=== PATIENT | male | born 1930 | race Caucasian/White ===

== ENCOUNTER 2016-12-18 14:21 | Emergency (ER) | payer MEDICARE ==
[2016-12-18 14:37] VITALS: BP 143/73
--- NOTE | 2016-12-18 15:06 | UC ---
Neck Pain HPI - HPI Summary HPI Summary: 86 yo male awoke with neck pain about 5 days ago He fell asleep while reading in bed and his neck was in a unusual position propped up by pillow Has markedly decreased ROM alexx trying to turn head to right Has pain radiating down right arm to elbow Takes gabapentin for pain states that he does not have an allergy to naproxen states that it makes him feel sick has a soft collar at home that helps - History of Current Complaint Chief Complaint: UCBackPain Stated Complaint: NECK PAIN/PINCHED NERVE Time Seen by Provider: 12/18/16 15:00 Hx Obtained From: Patient Timing: Constant Onset/Duration: Gradual Onset, Lasting Days Severity: Severe Pain Intensity: 10 Pain Scale Used: 0-10 Numeric Location: Diffuse, Radiates To: - right arm Character: Dull, Aching, Stiff, Spasmotic Aggravating Factors: Position, Movement Alleviating Factors: Nothing Associated Signs & Symptoms: Positive: Negative - Allergies/Home Medications Allergies/Adverse Reactions: Allergies Allergy/AdvReac Type Severity Reaction Status Date / Time Naproxen [From Aleve] Allergy Intermediate Shortness Verified 12/18/16 14:37 of Breath Metoprolol Allergy Unknown Verified 12/18/16 14:37 Reaction Details PMH/Surg Hx/FS Hx/Imm Hx Previously Healthy: Yes Cardiovascular History: Hypertension, Other Other Cardiovascular History: aortic valve replaement/carotid stenosis - Surgical History Surgical History: Yes Surgery Procedure, Year, and Place: RT GREAT TOE 1977, OPEN HEART 2009 WITH MECHANICAL VALVE REPLACEMENT(PATIENT HAS CARD-DR NOLASCO AT [facility] ), CAROTID ARTERY STENT(WILL BRING CARD), CATARACT BILATERAL - Family History Known Family History: Positive: Cardiac Disease, Hypertension - Social History Alcohol Use: Occasionally Substance Use Type: None Smoking Status (MU): Former Smoker When Did the Patient Quit Smoking/Using Tobacco: 1964 - Immunization History Most Recent Influenza Vaccination: n/a Most Recent Tetanus Shot: unk Most Recent Pneumonia Vaccination: n/a Review Of Systems Constitutional: Positive: Negative Skin: Positive: Negative Eyes: Positive: Negative ENT: Positive: Negative Respiratory: Positive: Negative Cardiovascular: Positive: Negative Gastrointestinal: Positive: Negative Genitourinary: Positive: Negative Musculoskeletal: Positive: Arthralgia, Myalgia Neurological: Positive: Negative Psychological: Positive: Negative All Other Systems Reviewed And Are Negative: Yes Physical Exam Triage Information Reviewed: Yes Appearance: Well-Appearing, No Pain Distress, Well-Nourished Vital Signs: Initial Vital Signs Temp 98.6 F 12/18/16 14:31 Pulse 86 12/18/16 14:31 Resp 18 12/18/16 14:31 BP 143/73 12/18/16 14:31 Pulse Ox 97 12/18/16 14:31 Vital Signs Reviewed: Yes Eyes: Positive: Conjunctiva Clear ENT: Positive: Hearing grossly normal. Negative: Nasal congestion, Nasal drainage, Trismus, Muffled/hoarse voice Neck: Positive: Tenderness @ - right>left trapezius, Other: - markedly decreased ROM Respiratory: Positive: Lungs clear, Normal breath sounds, No respiratory distress, No accessory muscle use Cardiovascular: Positive: RRR, No Murmur Musculoskeletal: Positive: ROM Intact, No Edema Neurological: Positive: Alert, Muscle Tone Normal, Other: - strenght 5/5, sensory intact , DTR's symmetrical Skin Exam: Normal Neck Pain Course/Dx - Differential Dx/Diagnosis Provider Diagnoses: severe cervical DDD. right cervical radiculopathy Discharge - Discharge Plan Condition: Stable Disposition: HOME Prescriptions: HYDROcodone/ACETAMIN 5-325 MG* [Thompson 5-325 TAB*] 1 tab PO Q6H PRN #12 tab MDD 4 PRN Reason: Pain - Severe Meloxicam [Mobic] 7.5 - 17 mg PO DAILY PRN #30 tab PRN Reason: Pain Patient Education Materials: Cervical Radiculopathy (ED), Degenerative Disc Disease (ED) Referrals: Latoya Lima MD [Primary Care Provider] - 5 Days Additional Instructions: wear your soft cervical collar narcotic will cause drowsiness don't take and drive use sparingly see your MD next week
--- NOTE | 2016-12-18 15:25 | RAD ---
INDICATION: Atraumatic neck pain COMPARISON: None TECHNIQUE: Routine five-view imaging was performed FINDINGS: Bones: There are no acute bony findings. There are advanced osteocytic changes with marked disc space narrowing, endplate sclerosis, uncinate process spurring, and facet arthropathy from C3 through C7. Craniocervical junction: The odontoid and atlantodental interval are normal. Alignment: Normal Disc spaces: As above multilevel degenerative narrowing Soft tissues: The prevertebral soft tissues are normal. IMPRESSION: ADVANCED MULTILEVEL DEGENERATIVE DISC DISEASE.
== END 2016-12-18 15:57 | disposition home or self-care (01) ==
LOC: UCCORT 14:21
DX: M50.10 Cervical disc disorder with radiculopathy, unspecified cervical region (principal); I10 Essential (primary) hypertension; Z95.2 Presence of prosthetic heart valve; Z88.6 Allergy status to analgesic agent; Z87.891 Personal history of nicotine dependence
CPT/HCPCS: 72050; 99212; G0463

== ENCOUNTER 2017-09-23 09:20 | Emergency (ER) | payer MEDICARE ==
[2017-09-23 09:55] VITALS: BP 135/64
[2017-09-23] MEDS ORDERED: Lidocaine 2% PF * 5 ML VIAL INJ ONE (10:25)
[2017-09-23] MEDS ORDERED: Triamcinolone Acetonide* 40 MG/ML 1 ML VIAL IM ONE (10:26)
--- NOTE | 2017-09-23 10:34 | UC ---
Shoulder Pain HPI - HPI Summary HPI Summary: Pt presents with c/o sudden onset of right shoulder pain that began Thursday, after mowing his lawn for 2 hours then pain worsened with mowing lawn one day later for 2 hours. Denies injury or trauma to the area. No previous history of injury or surgical procedure. - History of Current Complaint Chief Complaint: UCGeneralIllness Stated Complaint: RIGHT SHOULDER COMP Time Seen by Provider: 09/23/17 10:07 Hx Obtained From: Patient Onset/Duration: Sudden Onset, Lasting Days, Still Present, Worse Since - osnet Timing: Constant Severity Initially: Mild Severity Currently: Severe Pain Intensity: 8 Character: Dull, Aching Aggravating Factor(s): Movement, Internal Rotation Alleviating Factor(s): Rest Associated Signs And Symptoms: Positive: Weakness Related History: Dominant Hand Right - Risk Factors Non-Orthopedic Risk Factor: Negative - Allergies/Home Medications Allergies/Adverse Reactions: Allergies Allergy/AdvReac Type Severity Reaction Status Date / Time metoprolol Allergy Tinnitus Verified 09/23/17 09:44 naproxen [From Aleve] Allergy Shortness Verified 09/23/17 09:44 of Breath Home Medications: Home Medications Gabapentin CAP(*) [Neurontin 300 CAP(*)] 300 mg BEDTIME 09/23/17 [History Confirmed 09/23/17] amLODIPine TAB* [Norvasc 5 mg TAB*] 1 tab DAILY 09/23/17 [History Confirmed 02/02] PMH/Surg Hx/FS Hx/Imm Hx Previously Healthy: Yes - Surgical History Surgical History: Yes Surgery Procedure, Year, and Place: RT GREAT TOE 1977, 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 ), CAROTID ARTERY STENT(WILL BRING CARD), CATARACT BILATERAL - Family History Known Family History: Positive: Cardiac Disease, Hypertension - Social History Occupation: Retired Lives: With Family Alcohol Use: Rare Substance Use Type: None Smoking Status (MU): Former Smoker Have You Smoked in the Last Year: No When Did the Patient Quit Smoking/Using Tobacco: 1964 - Immunization History Most Recent Influenza Vaccination: n/a Most Recent Tetanus Shot: unk Most Recent Pneumonia Vaccination: n/a Review of Systems Constitutional: Negative Skin: Negative Eyes: Negative ENT: Negative Respiratory: Negative Cardiovascular: Negative Gastrointestinal: Negative Genitourinary: Negative Motor: Decreased ROM - right shoulder, Weakness - right upper arm Neurovascular: Negative Musculoskeletal: Arthralgia, Decreased ROM - right shoulder, Myalgia Neurological: Negative Psychological: Negative Is Patient Immunocompromised?: No All Other Systems Reviewed And Are Negative: Yes Physical Exam Triage Information Reviewed: Yes Appearance: Well-Appearing Vital Signs: Initial Vital Signs Temp 98 F 09/23/17 09:47 Pulse 50 09/23/17 09:47 Resp 16 09/23/17 09:47 BP 135/64 09/23/17 09:47 Pulse Ox 100 09/23/17 09:47 Vital Signs Reviewed: Yes Eye Exam: Normal ENT: Positive: Hearing grossly normal, Other - has hearing aid Respiratory Exam: Normal Respiratory: Positive: No respiratory distress Cardiovascular Exam: Normal Cardiovascular: Positive: Bradycardia Musculoskeletal: Positive: Strength Limited @ - right upper extremity, shoulder , ROM Limited @ - right shoulder upper extremity Neurological Exam: Normal Psychological Exam: Normal Skin Exam: Normal Procedures - Procedure Summary Procedure Summary: kenalog injection to right shoulder. See Dr. Ward progress note. Shoulder Course/Dx - Course Assessment/Plan: Pt agreed to Kenalog injection. See DR. Ward Progress note - Differential Dx/Diagnosis Differential Diagnosis/HQI/PQRI: Bursitis, Rotator Cuff Injury Provider Diagnoses: Rotator Cuff injury Discharge - Sign-Out/Discharge Documenting (check all that apply): Discharge/Admit/Transfer - Discharge Plan Condition: Stable Disposition: HOME Prescriptions: Acetaminophen TAB* [Tylenol TAB*] 650 mg PO Q6H PRN #40 tab PRN Reason: Pain Patient Education Materials: Rotator Cuff Injury (ED) Referrals: Yrn Gan MD [Medical Doctor] - As Soon As Possible Latoya Lima MD [Primary Care Provider] - If Needed - Billing Disposition and Condition Condition: STABLE Disposition: HOME
--- NOTE | 2017-09-23 10:54 | UC ---
- Progress Note Progress Note: Right shoulder pain. Atraumatic from using a riding mower where he did a lot of steering. It slowly got worse. He was verbally consented for injection and risks reviewed such as pain, bleeding, infection. He agreed. Time out and usual sterile technique. betadine prep x 3. 40mg kenalog, 3ml lidocaine. 20 guage needle. One attempt. posterior approach. NO complications. Discharge - Sign-Out/Discharge Documenting (check all that apply): Discharge/Admit/Transfer - Discharge Plan Condition: Good Disposition: HOME Referrals: Latoya Lima MD [Primary Care Provider] - - Billing Disposition and Condition Condition: GOOD Disposition: HOME
== END 2017-09-23 11:03 | disposition home or self-care (01) ==
LOC: UCCORT 09:20
DX: S46.001A Unspecified injury of muscle(s) and tendon(s) of the rotator cuff of right shoulder, initial encounter (principal); X50.9XXA Other and unspecified overexertion or strenuous movements or postures, initial encounter; Y93.I9 Activity, other involving external motion; Y92.007 Garden or yard of unspecified non-institutional (private) residence as the place of occurrence of the external cause; Z88.6 Allergy status to analgesic agent; Z88.8 Allergy status to other drugs, medicaments and biological substances; Z87.891 Personal history of nicotine dependence
CPT/HCPCS: 20610; 99212; G0463; J3301

== ENCOUNTER 2017-10-24 08:00 | Emergency (ER) | payer MEDICARE ==
[2017-10-24 08:25] VITALS: BP 151/69
--- NOTE | 2017-10-24 08:41 | UC ---
Respiratory Complaint HPI - HPI Summary HPI Summary: Patient presents with 2-3 weeks of intermittent coughing paroxysms. Patient states occasionally he has some white sputum production. Patient denies shortness of breath or chest pain. Patient has abdominal pain. Patient denies nausea vomiting. Patient states he does have some head and nasal congestion as well as postnasal drip. Patient unsure if this is causing him to cough. Patient states his last paroxysm was yesterday. No fevers or chills. No rash. Patient has taken multiple nexh-qim-[id number] remedies with little relief. Patient has not taken any allergy medication. No sick contacts. Patient denies any ear pain or fullness. He states his ankles and a little swollen but "nothing" no other complaints. No history of CHF Medications medications reviewed this visit - History of Current Complaint Chief Complaint: UCRespiratory Stated Complaint: RESPIRATORY Time Seen by Provider: 10/24/17 08:21 Hx Obtained From: Patient Onset/Duration: Lasting Weeks Timing: Intermittent Episodes Severity Currently: None Pain Intensity: 0 Character: Cough: Productive Associated Signs And Symptoms: Positive: Negative - Allergies/Home Medications Allergies/Adverse Reactions: Allergies Allergy/AdvReac Type Severity Reaction Status Date / Time metoprolol Allergy Tinnitus Verified 10/24/17 08:21 naproxen [From Aleve] Allergy Shortness Verified 10/24/17 08:21 of Breath Home Medications: Home Medications Allopurinol TAB* [Zyloprim 100 MG TAB*] 100 mg PO DAILY 10/24/17 [History Confirmed 10/24/17] PMH/Surg Hx/FS Hx/Imm Hx Previously Healthy: Yes Cardiovascular History: Other - valve replaced Other Cardiovascular History: valve replaced - Surgical History Surgical History: Yes Surgery Procedure, Year, and Place: RT GREAT TOE 1977, OPEN HEART 2009 WITH MECHANICAL VALVE REPLACEMENT(PATIENT HAS CARD-DR NOLASCO AT [facility]. ), CAROTID ARTERY STENT(WILL BRING CARD), CATARACT BILATERAL - Family History Known Family History: Positive: Cardiac Disease, Hypertension - Social History Occupation: Retired Lives: With Family Alcohol Use: Rare Substance Use Type: None Smoking Status (MU): Former Smoker Have You Smoked in the Last Year: No When Did the Patient Quit Smoking/Using Tobacco: 1964 - Immunization History Most Recent Influenza Vaccination: n/a Most Recent Tetanus Shot: unk Most Recent Pneumonia Vaccination: n/a Review of Systems Constitutional: Negative Skin: Negative ENT: Nasal Discharge, Sinus Congestion Respiratory: Cough All Other Systems Reviewed And Are Negative: Yes Physical Exam - Summary Physical Exam Summary: Vital Signs Reviewed: Yes A+Ox3, no distress Eyes: Conjunctiva Clear, LUTHER. EOM intact and full ENT: Hearing grossly normal TM x 2 obscurred by cerumen bilateral; turbinates inflammed and boggy. + PND clear, mmoist, uvula midline, no exudate, no erythema Neck: Positive: Supple no lymphadenopathy Respiratory: Positive: No respiratory distress, No accessory muscle use + CTA throughout no w/r/r Cardiovascular: RRR nl s1, s2 CBT <2 sec no edema abd soft + BS nt/nd no guarding, no distension Musculoskeletal Exam: OTERO x 4 without difficulty Strength Intact, ROM Intact Neurological: Positive: Alert, + sensation throughout Psychological: Positive: Normal Response To Family Skin: Positive: no rash, no ecchymosis Triage Information Reviewed: Yes Vital Signs: Initial Vital Signs Temp 98.5 F 10/24/17 08:18 Pulse 63 10/24/17 08:18 Resp 16 10/24/17 08:18 BP 151/69 10/24/17 08:18 Pulse Ox 96 10/24/17 08:18 UC Diagnostic Evaluation - Laboratory O2 Sat by Pulse Oximetry: 96 - Radiology Xray Interpretation: No Acute Changes - Attending Doctor: Sarah Fernandez ( [id number]) Radiology Interpretation Completed By: Radiologist Re-Evaluation - Re-Evaluation First Eval Re-Evaluation Time: 09:06 Change: Improved - TM x 2 clear no erythema, no fluid reviewd CXR suspect cough related to PND recommend flonase, claritin pt comfotable and in agreement with plan Respiratory Course/Dx - Course Course Of Treatment: presents with intermittent episodes of coughing with white sputum over the last to 3 weeks. Patient with head congestion postnasal drip. Patient denies any other complaints but states maybe some trace edema in his legs. On exam patient well-appearing. Patient with sinus congestion and postnasal drip. Patient lungs are clear. Patient panic membranes obscured by cerumen bilaterally. Will check a chest x-ray. Will irrigate years. Suspect cough is related to postnasal drip and not a lung process. I'll make sure there is no evidence of CHF on his chest x-ray given his history of atrial fibrillation and valve replacement. Patient comfortable with the plan. - Differential Dx/Diagnosis Provider Diagnoses: Bilateral cerumen impaction. Postnasal drip sinus congestion. Cough Discharge - Sign-Out/Discharge Documenting (check all that apply): Discharge/Admit/Transfer - Discharge Plan Condition: Stable Disposition: HOME Prescriptions: Carbamide Peroxide 6.5% OTIC* [DEBROX 6.5% Otic*] 3 drop BOTH EARS DAILY #1 bottle Fluticasone NASAL SPRAY 50MCG* [Flonase NASAL SPRAY 50MCG*] 2 spray BOTH NARES DAILY #1 btl Patient Education Materials: Cerumen Impaction (ED), Acute Cough (ED), Postnasal Drip (DC) Referrals: Latoya Lima MD [Primary Care Provider] - Additional Instructions: The doctor that evaluated you today thinks your cough is related to post nasal drip and congestion from your lungs. You chest xray does not show any concerning finding such as pneumonia or fluid on your lungs. It is recommeded you use nasal spray daily as prescribed It is recommended you use an allergy medication such as Claritin, Zyrtec, Mckenna USe was softening drops daily stay well hydrated. Drink plenty of non-alcoholic, non-caffinated beverages Contact your doctor to schedule a follow-up appointment. Contact your doctor or return with questions or concerns. If you develop shortness of breath, chest pain, lightheadedness or other concerning symptoms you should go to the emergency department for evaluation - Billing Disposition and Condition Condition: STABLE Disposition: Home
--- NOTE | 2017-10-24 09:02 | RAD ---
INDICATION: Cough x2 weeks COMPARISON: Chest x-ray dated August 24, 2014 TECHNIQUE: PA and lateral views of the chest were obtained. FINDINGS: Stable postsurgical changes include left upper chest cardiac pacemaker with one lead overlying the heart, sternotomy wires and prosthetic heart valves, all unchanged since the prior chest x-ray. The heart and mediastinum are normal in size and contour. The lungs are grossly clear. There is no evidence of large pleural effusion. Degenerative changes of the thoracic spine include loss of intervertebral disc height and anterior marginal osteophyte formation. There is no radiographic evidence of free air beneath the diaphragm IMPRESSION: No radiographic evidence of acute cardiopulmonary disease.
== END 2017-10-24 09:29 | disposition home or self-care (01) ==
LOC: UCCORT 08:00
DX: R05 Cough (principal); H61.23 Impacted cerumen, bilateral; R09.82 Postnasal drip; R09.81 Nasal congestion; Z88.6 Allergy status to analgesic agent; Z88.8 Allergy status to other drugs, medicaments and biological substances; Z87.891 Personal history of nicotine dependence
CPT/HCPCS: 71046; 99213; G0463

== ENCOUNTER 2017-11-11 08:56 | Emergency (ER) | payer MEDICARE ==
[2017-11-11 09:28] VITALS: BP 133/65
--- NOTE | 2017-11-11 10:13 | UC ---
Throat Pain/Nasal Carl HPI - HPI Summary HPI Summary: He has had sinus pressure and head congestion for weeks. He had a cough as well that has improved. No fever. There is malaise. He denies seasonal allergies. - History of Current Complaint Chief Complaint: UCGeneralIllness Stated Complaint: SKIN COMPLAINT ON FOREHEAD Time Seen by Provider: 11/11/17 09:23 Hx Obtained From: Patient Onset/Duration: Gradual Onset, Lasting Weeks, Still Present Severity: Moderate Pain Intensity: 0 Cough: Nonproductive Associated Signs & Symptoms: Positive: Sinus Discomfort. Negative: Fever, Vomiting, Rash - Allergies/Home Medications Allergies/Adverse Reactions: Allergies Allergy/AdvReac Type Severity Reaction Status Date / Time metoprolol Allergy Tinnitus Verified 11/11/17 09:22 naproxen [From Aleve] Allergy Shortness Verified 11/11/17 09:22 of Breath Home Medications: Home Medications Probenecid/Colchicine [Probenecid-Colchicine Tabs] 1 each PO DAILY PRN 11/11/17 [History Confirmed 11/11/17] PMH/Surg Hx/FS Hx/Imm Hx Previously Healthy: No - HTN. No heart disease. - Surgical History Surgical History: Yes Surgery Procedure, Year, and Place: RT GREAT TOE 1977, OPEN HEART 2009 WITH MECHANICAL VALVE REPLACEMENT(PATIENT HAS CARD-DR NOLASCO AT [facility] ), CAROTID ARTERY STENT(WILL BRING CARD), CATARACT BILATERAL - Family History Known Family History: Positive: Cardiac Disease, Hypertension - Social History Alcohol Use: None Substance Use Type: None Smoking Status (MU): Former Smoker Have You Smoked in the Last Year: No When Did the Patient Quit Smoking/Using Tobacco: 1965 - Immunization History Most Recent Influenza Vaccination: n/a Most Recent Tetanus Shot: unk Most Recent Pneumonia Vaccination: n/a Review of Systems ENT: Sinus Congestion, Sinus Pain/Tenderness Respiratory: Cough All Other Systems Reviewed And Are Negative: Yes Physical Exam Triage Information Reviewed: Yes Appearance: Well-Appearing, No Pain Distress, Well-Nourished Vital Signs: Initial Vital Signs Temp 98.0 F 11/11/17 09:14 Pulse 58 11/11/17 09:14 Resp 16 11/11/17 09:14 BP 133/65 11/11/17 09:14 Pulse Ox 98 11/11/17 09:14 Eyes: Positive: Conjunctiva Clear ENT: Positive: Normal ENT inspection, Pharynx normal, Nasal congestion, TMs normal, Sinus tenderness. Negative: Pharyngeal erythema, Nasal drainage, Tonsillar swelling, Tonsillar exudate, Trismus, Muffled voice, Uvula midline Neck: Positive: Supple, Nontender, No Lymphadenopathy Respiratory: Positive: Lungs clear, Normal breath sounds, No respiratory distress, No accessory muscle use. Negative: Respiratory distress, Decreased breath sounds, Accessory muscle use, Crackles, Rhonchi, Stridor Cardiovascular: Positive: RRR, No Murmur, Pulses Normal Abdomen Description: Positive: No Organomegaly, Soft. Negative: Distended, Guarding Musculoskeletal: Positive: Strength Intact, ROM Intact, No Edema Neurological: Positive: Alert, Muscle Tone Normal. Negative: Fatigued Psychological: Positive: Age Appropriate Behavior Skin: Positive: rashes Throat Pain/Nasal Course/Dx - Course Course Of Treatment: Two weeks or so of congestion. There is now remaining sinus pressure and pain. Cough is much better. - Differential Dx/Diagnosis Provider Diagnoses: sinusitis Discharge - Sign-Out/Discharge Documenting (check all that apply): Discharge/Admit/Transfer - Discharge Plan Condition: Good Disposition: HOME Prescriptions: Azithromyxin JIMI (NF) [Z-Jimi (Zithromax) 250 mg tabs #6] 2 tab PO .TODAY, THEN 1 DAILY #6 tab Guaifenesin/Pseudo 600/60(NF) [Mucinex D 600/60 (NF)] 1 tab PO DAILY #20 tab Patient Education Materials: Sinusitis (ED), Rhinosinusitis (ED) Referrals: Latoya Lima MD [Primary Care Provider] - If Needed - Billing Disposition and Condition Condition: GOOD Disposition: Home
== END 2017-11-11 10:15 | disposition home or self-care (01) ==
LOC: UCCORT 08:56
DX: J32.9 Chronic sinusitis, unspecified (principal); Z88.6 Allergy status to analgesic agent; Z88.8 Allergy status to other drugs, medicaments and biological substances; Z87.891 Personal history of nicotine dependence; Z95.2 Presence of prosthetic heart valve
CPT/HCPCS: 99212; G0463

== ENCOUNTER 2018-02-27 12:30 | Emergency (ER) | payer MEDICARE ==
[2018-02-27 13:46] VITALS: BP 163/79
== END 2018-02-27 14:26 | disposition left against medical advice (07) ==
LOC: UCCORT 12:30
DX: S61.211A Laceration without foreign body of left index finger without damage to nail, initial encounter (principal); X58.XXXA Exposure to other specified factors, initial encounter; Y92.9 Unspecified place or not applicable; Z53.21 Procedure and treatment not carried out due to patient leaving prior to being seen by health care provider

== ENCOUNTER 2019-07-22 09:17 | Emergency (ER) | payer MEDICARE ==
[2019-07-22 09:42] VITALS: BP 174/86
--- NOTE | 2019-07-22 10:24 | UC ---
General HPI - HPI Summary HPI Summary: 88-year-old male presents with concerns for an elevated blood pressure over the past couple of weeks. Patient states that he is scheduled for prostate surgery next week and worries that this may delay the procedure. He has been unable to schedule an appointment with his primary care provider to discuss his concerns. Patient presents with a record of blood pressures that he has been taking at home for the past week. His record shows systolic blood pressures in the 140s to 170s and diastolic pressures in the 70s and 80s with a single diastolic blood pressure reading in the 90s. States he has been compliant with his blood pressure medication although he has not taken his meds today. Denies headache, dizziness, visual disturbances, slurred or difficulty speaking, facial droop, numbness, tingling, or weakness in the arms or legs, chest pain, palpitations, or shortness of breath. - History of Current Complaint Chief Complaint: UCGeneralIllness Stated Complaint: BLOOD PRESSURE CONCERN Time Seen by Provider: 07/22/19 10:14 Hx Obtained From: Patient Pain Intensity: 0 - Allergy/Home Medications Allergies/Adverse Reactions: Allergies Allergy/AdvReac Type Severity Reaction Status Date / Time metoprolol AdvReac Tinnitus Verified 07/22/19 09:32 naproxen [From Aleve] AdvReac Shortness Verified 07/22/19 09:32 of Breath Home Medications: Home Medications Vitamin B Complex CAP* [B Complex CAP*] 1 cap PO QAM 08/23/14 [History Confirmed 07/22/19] Gabapentin CAP(*) [Neurontin 300 CAP(*)] 300 mg PO BEDTIME PRN 09/23/17 [ History Confirmed 07/22/19] Probenecid/Colchicine [Probenecid-Colchicine Tabs] 1 each PO QAM PRN 11/11/17 [ History Confirmed 07/22/19] Aspirin EC TAB* [Ecotrin EC Low Dose 81 MG*] 81 mg PO QAM 02/27/18 [History Confirmed 07/22/19] Ramipril CAP* [Altace CAP*] 10 mg PO BEDTIME 07/20/19 [History Confirmed ] PMH/Surg Hx/FS Hx/Imm Hx Cardiovascular History: Hypertension, Atrial Fibrillation, Other - Surgical History Surgical History: Yes Surgery Procedure, Year, and Place: RT GREAT TOE 1977, 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 ), CAROTID ARTERY STENT(WILL BRING CARD), CATARACT BILATERAL - Family History Known Family History: Positive: Cardiac Disease, Hypertension - Social History Occupation: Retired Lives: Alone Alcohol Use: Occasionally Substance Use Type: None Smoking Status (MU): Former Smoker Have You Smoked in the Last Year: No When Did the Patient Quit Smoking/Using Tobacco: 1965 - Immunization History Most Recent Influenza Vaccination: n/a Most Recent Tetanus Shot: 2017 Most Recent Pneumonia Vaccination: n/a Review of Systems All Other Systems Reviewed And Are Negative: Yes Constitutional: Negative: Fever, Chills Respiratory: Negative: Shortness Of Breath, Cough Cardiovascular: Negative: Palpitations, Chest Pain Gastrointestinal: Positive: Negative Genitourinary: Positive: Negative Musculoskeletal: Positive: Negative Neurological/Mental Status: Negative: Headache, Weakness, Paresthesia, Numbness Is Patient Immunocompromised?: No Physical Exam - Summary Physical Exam Summary: GENERAL APPEARANCE: Well developed, well nourished, alert and cooperative, and appears to be in no acute distress. EYES: Conjunctiva clear. No drainage. EARS: External auditory canals and tympanic membranes clear, hearing grossly intact. NOSE: No nasal discharge. THROAT: Pharynx normal. No tonsilar inflammation, swelling, exudate, or lesions. Uvula midline. NECK: Neck supple, non-tender without lymphadenopathy. CARDIAC: Normal S1 and S2. No S3, S4 or murmurs. Rhythm is regular. There is no peripheral edema, cyanosis or pallor. Extremities are warm and well perfused. Capillary refill is less than 2 seconds. Peripheral pulses intact. LUNGS: Clear to auscultation without rales, rhonchi, wheezing or diminished breath sounds. ABDOMEN: Positive bowel sounds. Soft, nondistended, nontender. No guarding or rebound. No masses or hepatosplenomegally. MUSKULOSKELETAL: ROM intact to all extremities. No joint erythema or tenderness. Normal muscular development. Normal gait. SKIN: Skin normal color, texture and turgor with no lesions or eruptions. Triage Information Reviewed: Yes Vital Signs: Initial Vital Signs Temp 97.4 F 07/22/19 09:34 Pulse 52 07/22/19 09:34 Resp 16 07/22/19 09:34 BP 174/86 07/22/19 09:34 Pulse Ox 100 07/22/19 09:34 Vital Signs Reviewed: Yes Course/Dx - Course Course Of Treatment: 88-year-old male presents with concerns for an elevated blood pressure over the past couple of weeks. Patient states that he is scheduled for prostate surgery next week and worries that this may delay the procedure. He has been unable to schedule an appointment with his primary care provider to discuss his concerns. Patient presents with a record of blood pressures that he has been taking at home for the past week. His record shows systolic blood pressures in the 140s to 170s and diastolic pressures in the 70s and 80s with a single diastolic blood pressure reading in the 90s. States he has been compliant with his blood pressure medication although he has not taken his meds today. Denies headache, dizziness, visual disturbances, slurred or difficulty speaking, facial droop, numbness, tingling, or weakness in the arms or legs, chest pain, palpitations, or shortness of breath. Afebrile. Patient's blood pressure was elevated at 174 /86 otherwise vital signs were stable. His exam was overall unremarkable. We discussed that with him being asymptomatic that his elevated blood pressure readings likely did not need to be urgently managed and he could contact his primary care provider to discuss changes in his medication regimen. Also counseled patient to inform his surgeon and the anesthesiologist about his concerns as they would be the ones to make any determinations regarding his surgery. Recommended he follow up with his primary care provider within the week. Anticipatory guidance and warning symptoms are reviewed with the patient. Verbalizes understanding and agrees with plan of care. - Differential Dx - Multi-Symptom Differential Diagnoses: Other - Hypertension - Diagnoses Provider Diagnosis: Hypertension Discharge ED - Sign-Out/Discharge Documenting (check all that apply): Patient Departure All imaging exams completed and their final reports reviewed: No Studies - Discharge Plan Condition: Stable Disposition: HOME Patient Education Materials: Hypertension (ED) Referrals: Julio Cesar Santiago DO [Primary Care Provider] - 7 Days Additional Instructions: Your blood pressure in the clinic today was elevated however because you are not having any symptoms I do not feel that this needs to be urgently addressed and you can work with your primary care provider to try to lower it. Continue taking your blood pressure medication as directed for now. Discuss your concerns with the surgeon and anesthesiologist prior to your surgery. They will determine if the elevated blood pressure will cause any delay in the procedure. Follow-up with your primary care provider within a week to discuss her concerns. Seek immediate medical attention in the emergency room if you develop a sudden, severe headache, visual disturbances, slurred or difficulty speaking, facial droop, weakness, numbness, or tingling in your arms or legs, chest pain, shortness of breath, or any concerning symptoms. - Billing Disposition and Condition Condition: STABLE Disposition: Home - Attestation Statements Provider Attestation: This patient was not seen by me. I was available for consult. Chart reviewed. DAMASO
== END 2019-07-22 11:05 | disposition home or self-care (01) ==
LOC: UCCORT 09:17
DX: I10 Essential (primary) hypertension (principal); I48.91 Unspecified atrial fibrillation; Z87.891 Personal history of nicotine dependence; Z09 Encounter for follow-up examination after completed treatment for conditions other than malignant neoplasm; Z95.2 Presence of prosthetic heart valve; Z79.82 Long term (current) use of aspirin; Z88.8 Allergy status to other drugs, medicaments and biological substances; Z88.6 Allergy status to analgesic agent
CPT/HCPCS: 99211; G0463